=== PATIENT | female | born 1970 | race Caucasian/White ===

== ENCOUNTER 2023-11-03 14:41 | Emergency (ER) | payer OTHER, SELFPAY ==
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
[2023-11-03 14:44] VITALS: BP 125/76; PULSE 97; RESP 18; TEMP 36.6; O2SAT 100
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
[2023-11-03 16:35] VITALS: BP 121/77; PULSE 77; RESP 14; TEMP 36.8; O2SAT 100
--- NOTE | 2023-11-03 16:35 | PC.NURSE ---
c-collar removed per provider verbal order
== END 2023-11-03 16:36 | disposition home or self-care (01) ==
PROVIDERS: Emergency Provider Nurse Practitioner Family; PCP Internal Medicine
DX: S16.1XXA Strain of muscle, fascia and tendon at neck level, initial encounter (principal); S39.92XA Unspecified injury of lower back, initial encounter; E78.5 Hyperlipidemia, unspecified; J32.9 Chronic sinusitis, unspecified; F41.1 Generalized anxiety disorder; V49.40XA Driver injured in collision with unspecified motor vehicles in traffic accident, initial encounter; M47.812 Spondylosis without myelopathy or radiculopathy, cervical region; M47.816 Spondylosis without myelopathy or radiculopathy, lumbar region
CPT/HCPCS: 70450; 72125; 72131; 99284

== ENCOUNTER 2025-01-05 12:30 | Outpatient (CLI) | payer BC, SELFPAY ==
--- NOTE | ~2025-01-05 | MR_ITS ---
MRI of the lumbar spine Clinical History: Radiculopathy Technique: Axial T2-weighted images, and sagittal T1-weighted, T2-weighted, and T2 fat-sat images wer e acquired. Findings: There is no fracture or subluxation of the lumbar spine. Vertebral bodies maintain normal h eight and alignment. No bone marrow signal abnormality seen. At L1-L2, L2-L3, L3-L4, L4-L5, there is no disc bulge or herniation. There are mild facet joint degen erative changes at these levels. No spinal canal stenosis or neural foraminal narrowing at these leve ls. At L5-S1, there is central disc protrusion. There is mild facet arthropathy. No central canal stenosi s or neural foraminal narrowing. Paravertebral soft tissues are unremarkable. Impression: Central disc protrusion at L5-S1. No spinal canal stenosis or neural foraminal narrowing at any lumba r level. Reviewed, dictated and finalized at [facility]. Impression: Central disc protrusion at L5-S1. No spinal canal stenosis or neural foraminal narrowing at any lumbar level.
== END 2025-01-05 12:31 | disposition home or self-care (01) ==
LOC: GOSHIMG 12:31
PROVIDERS: PCP Nurse Practitioner; Visit Provider Nurse Practitioner
DX: M54.16 Radiculopathy, lumbar region (principal); M51.26 Other intervertebral disc displacement, lumbar region
CPT/HCPCS: 72148

== ENCOUNTER 2025-04-23 12:00 | Outpatient (NON) | payer BC, SELFPAY ==
--- OUTSIDE RECORDS SUMMARY | 2025-04-23 12:32 | XMS_ITS | Encounter Summary ---
Author Organization [facility] Healthcare Address [address] [place] [address] Care Team Providers Care Air Bag Curer Name Role Phone Armin Rodriguez DO Primary Care Provider [phone] Encounter Details Date Type Department Care Team (Late st Contact Info) Description 02/27/2025 Results Follow-Up [facility] [address] [facility] [address] [place] [address] Marian Puga, LEAH [address] [facility] [place] [facility] [address] [place], [place] [id number] SCREENING MAMMOGRAM BILATERAL W RANDAL Social History Tobacco Use Types Packs/Day Years Used Date Smoking Tobacco: Former Smokeless Tobacco: Never Alcohol Use Standard Drinks/Week Comments Yes 0 (1 standard drink = 0.6 oz pur e alcohol) AUDIT-C Answer Date Recorded Q1: How often do you have a drink containing alc ohol? 2-4 times a month 10/10/2024 Q2: How many drinks containi ng alcohol do you have on a typical day when you are drinking? 1 or 2 10/10/2024 Q3: How often do you have si x or more drinks on one occasion? Never 10/10/2024 Personal Safety Answer Date Recorded Have you ever been in or are you currently in a harmful physical or emotional relationship or is someone making you feel afraid or unsafe? 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
--- OUTSIDE RECORDS SUMMARY | 2025-04-23 12:32 | XMS_ITS | Clinical Summary ---
Author Organization [facility] Address [address] [place] [address] Care Team Providers Care Senior Administrative Support Name Role Phone Armin Rodriguez DO Primary Care Provider [phone] Allergies No known active allergies Medications acidophilus-pec tin, citrus 100 million cell-10 mg capsule Take by mouth Activ e vitamin B complex capsule Take 1 capsule by mouth daily Active cholecalciferol (VITAMIN D-3) 2000 unit capsule 1 capsule (2,000 Units total) Active ascorbic acid, vitamin C, (Vitamin C) powder Take by mouth Active collagen, hydrolysate, bovine, (collagen, hydr, bovine,, bulk,) 100 % powder Active estradioL (VIVELLE-DOT) 0.05 mg/24 hr 4 Active progesterone (PROMETRIUM) 100 mg capsule 3 Active buPROPion XL (WELLBUTRIN XL) 150 mg 24 hr tabletIndicatio ns:Anxiety with Depression Take 1 tablet (150 mg total) by mouth every morning 90 tablet [address] (CYMBALTA) 60 mg capsuleIndicati ons:Anxiety with Depression Take 1 capsule (60 mg total) by mouth daily 90 capsule 2 4 Active cyclobenzaprine (FLEXERIL) 10 mg tabletIndicatio ns:Muscle Spasm Take 1-2 tablets nightly as needed 180 tablet 3 4 Active clonazePAM (KlonoPIN) 0.5 mg tabletIndicatio ns:Anxiety Take 1/2-1 daily as needed for anxiety 30 tablet 1 4 Active Additional Information Patient not taking.Reported on 01/09/[address] (VOLTAREN) 75 mg EC tabletIndicatio ns:Pain Take 1 tablet (75 mg total) by mouth 2 (two) times a day as needed for pain for up to 14 days 28 tablet 5 Active cyanocobalamin, vitamin B-12, (B-12 COMPLIANCE INJ) Acti ve [id number] ORAL Active mometasone (ELOCON) 0.1 % solution APPLY TOPICALLY TO THE AFFECTED AREA DAILY Active neomycin-polymy susanna-dexAMETHaso ne (MAXITROL) 3.5mg/mL-10,000 unit/mL-0.1 % ophthalmic suspension SHAKE WELL AND INSTILL 1 DROP INTO LEFT EYE TWICE DAILY FOR 10 DAYS. 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 Uterus, cervix, LEEP excision - High grade squamous intraepithelial lesion (HSIL, JEANIE 3) - Marked margins of resection negative for high-grade squamous intraepithelial lesion - Low-grade squamous intraepithelial lesion (LGSIL) extends focally to endocervical margin resection - Endocervical tissue fragment negative for squamous intraepithelial lesion - Prior biopsy site changes - No evidence of invasive carcinoma NEGATIVE TOPHAT (x ) 6 mo pap and ECC/colpo--pap and ECC sent 08/17/23--nml cytology, HPV 16 +, colpo with ECC with no dysplasia ( x ) cotest 2024 HPV 16+ ( x ) colpo--nml ectocervix, ECC neg ( ) cotest 2025 ( ) cotest 2026 Assessment & Plan (01/09/2025 2:49 PM CDT): 2000 H/o LEEP Moved to OR for a while Hsil hpv 16 + -2022 Colpo w/ bx and JEANIE 2-3 --endo and ectocervix ( x) LEEP w/ top hat - ( x) path: Diagnosis: A. Uterus, cervix, LEEP excision - High grade squamous intraepithelial lesion (HSIL, JEANIE 3) - Marked margins of resection negative for high-grade squamous intraepithelial lesion - Low-grade squamous intraepithelial lesion (LGSIL) extends focally to endocervical margin resection - Endocervical tissue fragment negative for squamous intraepithelial lesion - Prior biopsy site changes - No evidence of invasive carcinoma NEGATIVE TOPHAT (x ) 6 mo pap and ECC/colpo--pap and ECC sent 08/17/23--nml cytology, HPV 16 +, colpo with ECC with no dysplasia ( x ) cotest 2024 HPV 16+ ( x ) colpo 01/09/25 ( ) cotest 2025 ( ) cotest 2026 HPV in female High risk 16 12/01/2022 Seizure disorder 09/13/2017 Overview (09/13/2017): 1 seizure in Keratosis, senilis 10/29/2014 Skin tag 10/29/2014 Arthralgia of elbow 12/25/2013 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 Overview (09/18/2016): Non-allergic rhinitis Depression 04/21/2012 Overview (09/18/2016): DEPRESSIVE DISORDER NEC Encounters Date Type Department Care Team Description 02/27/2025 9:55 AM CDT - 02/27/2025 11:59 PM CDT Hospital Encounter [address] [place] [address] Encounter for screening mammogram for malignant neoplasm of breast Discharge Disposition: Discharge to home or self care 02/27/2025 Results Follow-Up [facility] [address] [facility] [address] [place] [address] Marian Puga, LEAH SCREENING MAMMOGRAM BILATERAL W RANDAL from Last 3 Months Immunizations Immunization Administration Dates Next Due Flucelvax Influenza Quad 04/04/2017 Influenza, Trivalent, IM (MDV) 04/09/2014,2011 Influenza, Trivalent, Preservative Free, Intramu scular 04/22/2015 Influenza, Unspecified 02/27/2020 Pfizer SARS-CoV-2 Monovalent Vaccination (12+ Yrs) PURPLE 09/06/2020,08/09/2020 Tdap 02/23/2011,02/12/2011 Surgical History Surgery Date Site/Laterality Comments KNEE ARTHROSCOPY 06/14/2003 - 06/13/2004 Arthroscopy knee OTHER SURGICAL HISTORY h/o pityriasis in 20's CERVICAL BIOPSY W/ LOOP ELECTRODE EXCISION Dysplasia of cervix: LEEP SECTION 06/14/2007 - 06/13/2008 : KNEE ARTHROSCOPY W/ LATERAL RELEASE 06/14/2004 - 06/13/2005 FRACTURE SURGERY 12/12/2013 - 01/11/2014 Medical History Medical History Date Comments Hx Other Medical 2002 Dysplasia of ce rvix Hx Other Medical mirena inserted and removed 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 Anxiety -2010 Seizures (HCC) 1 while 26 weeks Skin cancer of anterior chest Family History Medical History Relation Name Comments Hyperlipidemia Brother 1 Hyperlipidemi a; Hyperlipidemia Brother 2 Michael Robledoper Arthritis Father Pete Cardenas Hearing loss Father Pete Cardenas Hyperlipidemia Father Pete Cardenas Hyperlipidem ia; Depression Mother Aliyah Cardenas Depression; Hyperlipidemia Mother Aliyah Cardenas Hyperlipidemi a; Colon cancer Other Esophageal cancer Other Liver cancer Other Allergy (severe) Son Juan Barajas Asthma Son Juan Barajas Hearing loss Son Jaun Barajas Relation Name Status Comments Brother 1 Brother 2 Michael Ronald Father Pete Ronald Mother Aliyah Cardenas Other Son Juan Barajas Social History Tobacco Use Types Packs/Day Years Used Date Smoking Tobacco: Former Smokeless Tobacco: Never Tobacco Cessation:Counseling Given: Not Answered Alcohol Use Standard Drinks/Week Comments Yes 0 [...] on file Legal 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 Gender Identity Not on file Sexual Orientation Straight 09/21/2020 10 :03 AM CDT Occupation Industry Job Start Date Job 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 Not on file Not on file Not on file Obstetrics History Para Term AB IAB SAB Ectopic Multiple Livin g Live Births 1 1 1 1 1 Date Outcome GA Total Labor Labor/2nd/3rd Weight Sex Type Anes PTL Mary Jo A1 A5 Name Clin Term Last Filed Vital Signs Vital Sign Reading Time Taken Comments Blood Pressure 122/78 01/09/2025 2:48 PM CDT Pulse 113 12/21/2024 2:05 PM CDT Temperature 36.6 C (97.8 F) 12/21/2024 2:05 PM CDT Respiratory Rate 20 12/21/2024 2:05 PM CDT Oxygen Saturation 98% 12/21/2024 2:05 PM CDT Inhaled Oxygen Concentration - - Weight 60.1 kg (132 lb 9.6 oz) 01/09/2025 2:48 P M CDT Height 154.9 cm (5' 1) 01/09/2025 2:48 PM CDT Body Mass Index 25.05 01/09/2025 2:48 PM CDT Plan of Treatment Health Maintenance Due Date Last Done Comments Depression Screening 1970 Hepatitis B Screening 1988 Zoster Vaccine (1 of 2) 2020 DTaP/Tdap/Td Vaccine (4 - Td or Tdap) 01/12/2023 01/12/2013, 02/23/2011, 02/12/2011 Covid-19 Vaccine (3 - 2024- season) 2025 09/06/2020, 08/09/2020 Influenza Vaccine (#1) 2025 , 04/04/2017, 04/22/2015, Additional history exists Cervical Cancer Screening 01/04/20262024, 01/04/2025, 08/17/2023, Additional history exists Regular Well Visit/Exam 18-64 01/04/2026 01/04/2025, 11/23/2022, 08/01/2021, Additional history exists Breast Cancer Screening-Mammogram 02/27/2026 02/27/2025, 02/24/2024, 01/14/2023, Additional history exists Colon Cancer Screening-Colonoscopy 10/10/2034 10/10/2024 Hepatitis C Screening Completed 11/23/2022, 022 Pneumococcal vaccine <65 Aged Out No longer eligible based on patient's age to complete this topic Procedures Procedure Name Priority Date/Time Associated Diagnosis Comments SCREENING MAMMOGRAM BILATERAL W RANDAL Schedule Routine, Read Routine (OP Routine) 02/27/2025 10:19 AM CDT Encounter for screening mammogram for malignant neoplasm of breast HIGH RISK HPV DNA DETECTION WITH GENOTYPING Routine 01/04/2025 9:34 AM CDT COLONOSCOPY 10/10/2024 10:17 AM CDT HEPATITIS C ANTIBODY Routine 11/23/2022 4:26 PM CDT Encounter for screening for infections with predominantly sexual mode of transmission from Last 3 Months or Most Recently Relevant to Health Maintenance Results * SCREENING MAMMOGRAM BILATERAL W RANDAL (02/27/2025 10:19 AM CDT) Anatomical Region Laterality Modality Breast Bilateral Mammography Impressions 02/27/2025 10:34 AM CDT Bilateral No evidence of malignancy in either breast. OVERALL BI-RADS FINAL ASSESSMENT: 1 - Negative RECOMMENDATION: Recommend bilateral annual screening mammography. If supplemental screening is desired for heterogeneously dense breast tissue, consider breast MRI every 1-2 years. If breast MRI cannot be performed, contrast-enhanced mammography is an alternative. Narrative 02/27/2025 10:34 AM CDT EXAMINATION: SCREENING MAMMOGRAM BILATERAL W RANDAL: 02/27/2025 COMPARISON: Relevant prior studies available at the time of interpretation were reviewed, including the most recent mammogram on: 02/24/2024. TECHNIQUE: Mammography was performed with 2D and 3D digital breast tomosynthesis (DBT) images. CAD was utilized. BREAST PARENCHYMAL COMPOSITION: The breasts are heterogeneously dense, which may obscure small masses. FINDINGS: Bilateral There is no suspicious mass, calcification, or architectural distortion in either breast. us Marian Puga NP IMG MAMMO PROCEDURES F inal Result * (ABNORMAL) High Risk HPV DNA Detection with Genotyping (Molecular component) (01/04/2025 9:34 AM CDT) HPV HR 16 Detected(A) Not Detected [facility] Comment:Testing performed by : [facility], [address] [place]., [address] HPV HR 18 Not Detected Not Detected [facility] Comment:Testing performed by : [facility], [address] [place]., [address] HPV HR Non 16/18 Not Detected Not Detected [facility] Comment: Interpretive Data Nucleic acid amplification for detection of high-risk Human Papilloma virus (HPV) is performed by the Belia Carlos 6800 HPV test. This assay specifically detects HPV-16 and HPV-18 genotypes. The following HPV genotypes are detected as high-risk HPV: HPV-31, 33, 35, ,39, 45, 51, 52, 56, 58, 59, 66, and 68. This assay has been approved by the [place] Food and Drug Administration for detection of HPV in cervical specimens collected by a physician using an endocervical brush/spatula or cervical broom and placed in the ThinPrep Pap Test PreservCyt collection containers. The performance characteristics of this test have been verified by the [facility] Infectious Disease laboratory. Correlate with separately reported cytology results, as applicable. Interpretive data last revised 22 Testing performed by: [facility], [address] [place]., [address] Endocervical 01/04/2025 9:34 AM CDT 01/05/2025 4:03 PM CDT Ana Chavez MD LAB BODY FLUIDS A ND STOOLS ORDERABLES Final Result [facility] [id number] Department [place] [address] [facility] * Colonoscopy (10/10/2024 10:17 AM CDT) Anatomical Region Laterality Modality Other Narrative Procedure Note Taiwo Mukherjee MD - 10/10/2024 10:17 AM CDT [facility] Patient Name: Glenny Cardenas Procedure Date: 10/10/2024 10:17 AM Date of : 1970 Admit Type: Outpatient Age: 54 Gender: Female Attending MD: Taiwo Mukherjee M.D. Room: [facility] 4 Note Status: Finalized Procedure: Colonoscopy Indications: Screening for colorectal malignant neoplasm, Thisis the patient's first colonoscopy Referring MD: Debo Ortez NP Providers: Taiwo Mukherjee M.D., Ozzy Sebastian M.D. Medicines: Monitored Anesthesia Care Complications: No immediate complications. Estimated Blood Loss: Estimated blood loss: none. Procedure: Pre-Anesthesia Assessment: - Immediately prior to administration ofmedications, the patient was re-assessed for adequacy to receive sedatives. - The risks and benefits of the procedure and the sedation options and risks were discussed with the patient. All questions were answered and informed consent was obtained. The benefits, risks and alternatives of theprocedure and sedation were discussed and informed consentwas obtained. All questions were answered. Please referto the signed informed consent document in the medical record. The scope was passed under direct vision.The PC [id number] endoscope was introducedthrough the anus and advanced to the cecum, identified by appendiceal orifice and ileocecal valve. The colonoscopy was performed without difficulty. The patient tolerated the procedure well. The qualityof the bowel preparation was fair. The quality of the bowel preparation was evaluated using the BBPS([place] Bowel Preparation Scale) with scores of: RightColon = 2 (minor amount of residual staining, smallfragments of stool and/or opaque liquid, but mucosa seenwell), Transverse Colon = 2 (minor amount of residual staining, small fragments of stool and/or opaque liquid, but mucosa seen well) and Left Colon = 2 (minor amount of residual staining, small fragmentsof stool and/or opaque liquid, but mucosa seen well).The total BBPS score equals 6. The quality of the bowel preparation was fair. The bowel preparation usedwas GoLYTELY via split dose instruction. Findings: The perianal and digital rectal examinations were normal. Three sessile polyps were found in the recto-sigmoid colon. Thepolyps were 3 to 4 mm in size. These polyps were removed with a jumbo cold forceps. Resection and retrieval were complete. The exam was otherwise without abnormality on direct and retroflexion views. Impression: - Preparation of the colon was fair. - Three 3 to 4 mm polyps at the recto-sigmoidcolon, removed with a jumbo cold forceps. Resected and retrieved. - The examination was otherwise normal on directand retroflexion views. Recommendation: - Discharge patient to home (ambulatory). - Resume previous diet today. - Await pathology results. - Repeat colonoscopy in 5 years for surveillance(due to fair prep) or earlier based on pathologyresults. Attending Participation: I was present and participated during the entire procedure, including non-ivory portions. Electronically signed by Taiwo Mukherjee MD Taiwo Mukherjee M.D. 10/10/2024 11:11:42 AM . Number of Addenda: 0 Note Initiated On: 10/10/2024 10:17 AM Taiwo Mukherjee MD ENDOSCOPY PROCEDURES Final Result * Hepatitis C antibody (11/23/2022 4:26 PM CDT) Hep C Ab Nonreactive Nonreactive [facility] Comment:Antibodies to HCV no t detected. Does NOT exclude the possibility of recent exposure to HCV. Current interpretive data was last revised on 22 Blood 11/23/2022 4:26 PM CDT 11/23/2022 7:18 PM CDT Nicki Baez NP LAB MICROBIOLOGY - GENERAL O RDERABLES Final Result [facility] Department [place] [address] from Last 3 Months or Most Recently Relevant to Health Maintenance Insurance [facility] CHOICE PLUS BLUE [employer] OOS * Guarantor: Ronald Glenny A Account Type Relation to Patient Date of Phone Billing Address Personal/Family Self 1970 [phone] (Work) [address] [place] [address] [employer] Advance Directives For more information, please contact: [phone] * Full Code (Latest Code Status on File) Date Activated Date Inactivated Comments 10/10/2024 9:16 AM 10/10/2024 4:03 PM Care Teams Senior Administrative Support Relationship Specialty Start Date End Date Armin Rodriguez DO PCP - General 09/11/16
[2025-04-23 13:00] LABS: Add Urine Microscopic? YES; Appearance Urine Clear (Clear); Glucose Urine UA Negative (Negative); Leukocyte Esterase Ur 1+ LEU/UL (Negative); Nitrate Urine Negative (Negative); Non Pathogenic Casts 0-2; Specific Grav Ur 1.007 (1.001-1.035)
== END 2025-04-23 12:01 | disposition home or self-care (01) ==
PROVIDERS: PCP Nurse Practitioner
DX: N93.0 Postcoital and contact bleeding (principal)
CPT/HCPCS: 81001; 87086

== ENCOUNTER 2025-05-01 08:32 | Outpatient (CLI) | payer BC, SELFPAY ==
--- NOTE | ~2025-05-01 | MR_ITS ---
EXAMINATION: MR cervical spine wo con DATE: 05/01/2025 09:13 INDICATION: Radiculopathy TECHNIQUE: Magnetic resonance imaging (MRI) of the cervical spine was performed without intravenous contrast. Sequences included sagittal T2-weighted FSE, sagittal T2-weighted FS FSE, sagittal T1-weighted FSE, axial MERGE, and axial T2-weighted FSE. COMPARISON: None FINDINGS: Multilevel degenerative changes throughout the cervical spine involving disc spaces pedicles and uncovertebral joints. No discrete medullary cord lesions or gross myelopathic changes within the cervical spinal cord. Visualized portion of the posterior fossa unremarkable. Level specific findings as follows: C2-3: Mild degenerative changes C3-4: Moderately severe posterior disc bulging and spondylosis but no discrete disc herniation or spinal canal stenosis. Mild bilateral neural foraminal narrowing. C4-5: Moderately severe posterior disc bulging and spondylosis contributing to the 2 at least moderately severe right-sided neural foraminal narrowing and borderline stenosis in the right lateral recess. Mild to moderate left neural foraminal narrowing. No discrete disc protrusion. No spinal canal stenosis. C5-6: More severe broad-based disc bulging and posterior spondylosis resulting in mild spinal canal stenosis. The AP diameter of the canal on image 16 series 5 is 7.55 mm. There is mild flattening of the spinal cord. No discrete disc protrusion. Moderately severe bilateral neural foraminal narrowing right worse than left. C6-7: Moderately severe posterior spondylosis also present at this level with borderline spinal canal stenosis. The AP diameter of the canal is 8.04 mm. No discrete disc protrusion. Mild to moderate bilateral neural foraminal narrowing left worse than right. C7-T1: Mild degenerative changes. IMPRESSION: Multilevel degenerative changes, most advanced at C5-6 with level specific details as cataloged above. Reviewed, dictated and finalized at location A. [employer] CON[employer] IMPRESSION: Multilevel degenerative changes, most advanced at C5-6 with level s pecific details as cataloged above.
== END 2025-05-01 08:33 | disposition home or self-care (01) ==
LOC: GOSHIMG 08:33
PROVIDERS: PCP Clinical Nurse Specialist; Visit Provider Clinical Nurse Specialist
DX: M47.813 Spondylosis without myelopathy or radiculopathy, cervicothoracic region (principal); M50.31 Other cervical disc degeneration, high cervical region; M47.812 Spondylosis without myelopathy or radiculopathy, cervical region; M54.12 Radiculopathy, cervical region; M48.02 Spinal stenosis, cervical region
CPT/HCPCS: 72141